=== PATIENT | male | born 1985 | race Two or more races ===

== ENCOUNTER 2024-10-06 18:49 | Emergency (ER) | payer OTHER ==
[~2024-10-06] VITALS: Ht 172.7 cm; Wt 97.0 kg
--- NOTE | 2024-10-06 20:12 | ED.PDOC ---
History of Present Illness HPI Comments 46 year old male presents to the ED with no prior Hx associated to the c/c of LLQ pain. Pt states that he was lifting a heavy door when he had an onset of pain in his LLQ area. Pt states that this event took place on Friday but has progressively gotten worse with no alleviating factors at this time. Pt notes that pain worsens when laying down and moving around. No other pain or sick complaints at this period in time. Chief Complaint: Pelvic Pain Time Seen by MD: 20:08 Reviewed Notes: Nurses Notes, Medications, Allergies Allergies: Coded Allergies: NO KNOWN ALLERGIES (Unverified , 10/06/24) Home Meds Active Scripts Cyclobenzaprine Hcl (CYCLOBENZAPRINE HCL) 7.5 Mg Tab, 7.5 MG PO Q8HP PRN, #30 TAB Prov:NABILA BLACKMAN MD 10/06/24 Gabapentin (Once-Daily) (Gabapentin) 300 Mg Tab, 300 MG PO Q6HP PRN, #30 TAB Prov:NABILA BLACKMAN MD 10/06/24 Information Source: Patient Mode of Arrival: Ambulatory Severity: Moderate Timing: Days Duration: Since onset, Days Prehospital treatment: None Past Medical History PAST MEDICAL HISTORY: Denies Surgical History: Denies all surgeries Family History Family History: Reviewed,noncontributory to illness, No family hx of Cancer, No family hx of DM, No family hx of Heart patrick, No family hx of HTN, No family hx ofKidney patrick, No family hx of Liver patrick, No family hx of Lung patrick, No family hx of Stroke Social History Smoker: Non-Smoker Alcohol: Denies ETOH Use Drugs: Denies Drug Use Lives In: Home Constitutional: denies: chills, diaphoresis, fatigue, fever, malaise, sweats, weakness, others EENTM: denies: blurred vision, double vision, ear bleeding, ear discharge, ear drainage, ear pain, ear ringing, eye pain, eye redness, hearing loss, mouth pain, mouth swelling, nasal discharge, nose bleeding, nose congestion, nose pain, photophobia, tearing, throat pain, throat swelling, voice changes, others Respiratory: denies: cough, hemoptysis, orthopnea, SOB at rest, shortness of breath, SOB with excertion, stridor, wheezing, others Cardiovascular: denies: chest pain, dizzy spells, diaphoresis, Dyspnea on exertion, edema, irregular heart beat, left arm pain, lightheadedness, palpitations, PND, syncope, others Gastrointestinal: reports: others (LLQ Pain ); denies: abdomen distended, abdominal pain, blood streaked bowels, constipated, diarrhea, dysphagia, difficulty swallowing, hematemesis, melena, nausea, poor appetite, poor fluid intake, rectal bleeding, rectal pain, vomiting Genitourinary: denies: burning, dysuria, flank pain, frequency, hematuria, in continence, penile discharge, penile sore, pain, testicle pain, testicle swelling, urgency, others Neurological: denies: dizziness, fainting, headache, left sided numbness, left sided weakness, numbness, paresthesia, pre-existing deficit, right sided numbness, right sided weakness, seizure, speech problems, tingling, tremors, weakness, others Musculoskeletal: denies: back pain, gout, joint pain, joint swelling, muscle pain, muscle stiffness, neck pain, others Integumetry: denies: bruises, change in color, change in hair/nails, dryness, laceration, lesions, lumps, rash, wounds, others Allergic/Immunocompromised: denies: Difficulty Healing, Frequent Infections, Hives, Itching, others Hematologic/Lymphatic: denies: anemia, blood clots, easy bleeding, easy bruising, swollen glands, others Endocrine: denies: excessive hunger, excessive sweating, excessive thirst, excessive urination, flushing, intolerance to cold, intolerance to heat, unexplained weight gain, unexplained weight loss, others Psychiatric: denies: anxiety, bipolar disorder, depression, hopeless, panic disorder, schizophrenia, sleepless, suicidal, others All Other Systems: Reviewed and Negative Physical Exam General Appearance: Mild Distress HEENT: Normal ENT Inspection, Pharynx Normal, TMs Normal Neck: Full Range of Motion, Non-Tender, Normal, Normal Inspection Respiratory: Chest Non-Tender, Lungs Clear, No Accessory Muscle Use, No Respiratory Distress, Normal Breath Sounds Cardiovascular: No Edema, No JVD, No Murmur, No Gallop, Normal Peripheral Pulses, Regular Rate/Rhythm Breast Exam: Deferred Gastrointestinal: LUQ, Non Tender Genitalia: Deferred Pelvic: Deferred Rectal: Deferred Extremities: No calf tenderness, Normal capillary refill, Normal inspection, Normal range of motion, Non-tender, No pedal edema Musculoskeletal : Apperance: Normal Neurologic: Alert, security public safety officer II-XII nml as Tested, No Motor Deficits, Normal Affect, Normal Mood, No Sensory Deficits Cerebellar Function: Normal Reflexes: Normal Skin: Dry, Normal Color, Warm Lymphatic: No Adenopathy Was a procedure done? Was a procedure done?: No Differential Dx Considerations may include: Differential diagnosis includes but is not limited to: ureteral colic / stone, Aortic aneurysm or dissection, pyelonephritis, acute renal failure, musculoskeletal etiology and others X-Ray, Labs, Meds, VS Vital Signs Date Time Temp Pulse Resp B/P (MAP) Pulse Ox O2 Delivery O2 Flow Rate FiO2 10/06/24 19:29 97.6 70 18 126/76 (93) 96 97.6 Lab Test 10/06/24 20:04 Range/Units White Blood Count 11.3 H 4.4-10.8 10^3/uL Red Blood Count 5.55 4.5-5.90 10^6/uL Hemoglobin 16.4 13.5-17.5 g/dL Hematocrit 47.9 41.0-53.0 % Mean Corpuscular Volume 86.4 80.0-100.0 fL Mean Corpuscular Hemoglobin 29.6 28.0-32.0 pg Mean Corpuscular Hemoglobin Concent 34.3 32.0-36.0 g/dL Red Cell Distribution Width 13.3 11.8-14.3 % Platelet Count 199 140-450 10^3/uL Mean Platelet Volume 10.3 6.9-10.8 fL Neutrophils (%) (Auto) 67.0 37.0-80.0 % Lymphocytes (%) (Auto) 24.0 10.0-50.0 % Monocytes (%) (Auto) 7.4 0.0-12.0 % Eosinophils (%) (Auto) 0.9 0.0-7.0 % Basophils (%) (Auto) 0.7 0.0-2.0 % Neutrophils # (Auto) 7.5 1.6-8.6 10 ^3/uL Lymphocytes # (Auto) 2.7 0.4-5.4 10 ^3/uL Monocytes # (Auto) 0.8 0-1.3 10 ^3/uL Eosinophils # (Auto) 0.1 0-0.8 10 ^3/uL Basophils # (Auto) 0.1 0-0.2 10 ^3/uL Nucleated Red Blood Cells 0.2 % Sodium Level 140 136-145 mmol/L Potassium Level 4.0 3.5-5.1 mmol/L Chloride Level 106 98-107 mmol/L Carbon Dioxide Level 27 20-31 mmol/L Anion Gap 7 5-15 Blood Urea Nitrogen 16 9-23 mg/dL Creatinine 1.12 0.700-1.30 mg/dL Glomerular Filtration Rate Calc 86 >90 mL/min BUN/Creatinine Ratio 14.3 10.0-20.0 Serum Glucose 91 74-106 mg/dL Calcium Level 9.5 8.7-10.4 mg/dL Total Bilirubin 0.8 0.2-1.0 mg/dL Aspartate Amino Transferase (AST) 17 13-40 U/L Alanine Aminotransferase (ALT) 27 7-40 U/L Alkaline Phosphatase 80 46-116 U/L Total Protein 7.6 5.7-8.2 g/dL Albumin 4.8 3.2-4.8 g/dL Lipase 34 12-53 U/L PATIENT: JULIOCESAR DWYER ACCT: [id number] UNIT: [id number] : 1985 LOC: ER ROOM / BED: / AGE / SEX: 39 / M ADM STATUS: REG ER SERVICE 46 ORDERING PHYSICIAN: NABILA BLACKMAN MD PROCEDURE(s): ABPL - CT AB PEL WO CON-NO ORAL OR IV REASON: flank pain ORDER NUMBER(s): [id number], ACCESSION NUMBER(s): [id number] Exam: CT CT AB PEL WO CON-NO ORAL OR IV History: flank pain Comparison Study: None Technique: Multidetector spiral CT of the abdomen was performed from lung bases to pubic symphysis. Imaging was performed without IV contrast. Axial, coronal and sagittal multiplanar reformats were obtained from the axial data set by the technologist. Radiation Dose : 1. Abdomen/Pelvis: CTDIvol 12.17 mGy, DLP 655.45 mGy*cm. Findings: Evaluation of solid organs is limited due to lack of intravenous contrast use. Lung Bases: No abnormality demonstrated. Liver: Liver is normal in size and appears unremarkable apart from a small 14 mm cyst in the right lobe. Gallbladder and Biliary Tree: No abnormality demonstrated. Spleen: No abnormality demonstrated. Pancreas: No abnormality demonstrated. Adrenal Glands: No abnormality demonstrated. Kidneys: No abnormality demonstrated. Bladder: Grossly unremarkable for degree of distention. Bowel: Stomach appears grossly unremarkable. No abnormally dilated or thick- walled loops of large or small bowel noted. Appendix is not visualized; however, no secondary findings of acute appendicitis identified. Ascites: Absent Lymphadenopathy: No evidence of lymphadenopathy. Abdominal Wall and Mesentery: Unremarkable. Vasculature: Unremarkable given lack of intravenous contrast. Pelvic Organs: Unremarkable Musculoskeletal: No bony lesions or fracture. IMPRESSION: No abnormality demonstrated. Radiation optimization: All CT scans at this facility use at least one of these dose optimization techniques: automated exposure control mA and/or kV adjustment per patient size (includes targeted exams where dose is matched to clinical indication) or iterative reconstruction. Time of 1ST Reevaluation: 20:38 Reevaluation 1ST: Unchanged Patient Education/Counseling: Diagnosis, Treatment Family Education/Counseling: No Family Present Departure 1 Departure Time of Disposition: 20:59 Impression: Primary Impression: Strain of left iliopsoas muscle Disposition: HOME / SELF CARE / HOMELESS Condition: Stable e-Prescriptions Cyclobenzaprine Hcl (CYCLOBENZAPRINE HCL) 7.5 Mg Tab 7.5 MG PO Q8HP PRN, #30 TAB Prov: NABILA BLACKMAN MD 10/06/24 Gabapentin (Once-Daily) (Gabapentin) 300 Mg Tab 300 MG PO Q6HP PRN, #30 TAB Prov: NABILA BLACKMAN MD 10/06/24 Discharged With: Self Critical Care Note Critical Care Time?: No Stability Stability form required: No I personally scribed for NABILA BLACKMAN MD ([email or web address]) on 10/06/24 at 20:12. Electronically submitted by Jacob Madrigal ([email or web address]). I personally scribed for NABILA BLACKMAN MD ([email or web address]) on 10/06/24 at 20:31. Electronically submitted by Jacob Madrigal ([email or web address]). NABILA BLACKMAN MD October 06, 2024 20:12
[2024-10-06 20:16] LABS: Basophils # (auto) 0.1 10 ^3/uL (0-0.2); Basophils % (auto) 0.7 % (0.0-2.0); Eosinophils # (auto) 0.1 10 ^3/uL (0-0.8); Eosinophils % (auto) 0.9 % (0.0-7.0); Hematocrit 47.9 % (41.0-53.0); Hemoglobin 16.4 g/dL (13.5-17.5); Lymphocytes # (auto) 2.7 10 ^3/uL (0.4-5.4); Mean Corpuscular Hemoglobin 29.6 pg (28.0-32.0); Mean Corpuscular Hgb Conc. 34.3 g/dL (32.0-36.0); Mean Corpuscular Volume 86.4 fL (80.0-100.0); Monocytes # (auto) 0.8 10 ^3/uL (0-1.3); Monocytes % (auto) 7.4 % (0.0-12.0); Neutrophils # (auto) 7.5 10 ^3/uL (1.6-8.6); Nucleated Red Blood Cells % 0.2 %; Platelet Count (auto) 199 10^3/uL (140-450); Red Blood Cells 5.55 10^6/uL (4.5-5.90); Red Cell Distribution Width 13.3 % (11.8-14.3); White Blood Cell 11.3 10^3/uL (4.4-10.8)
--- NOTE | 2024-10-06 20:25 | DVH ---
Exam: CT CT AB PEL WO CON-NO ORAL OR IV History: flank pain Comparison Study: None Technique: Multidetector spiral CT of the abdomen was performed from lung bases to pubic symphysis. Imaging was performed without IV contrast. Axial, coronal and sagittal multiplanar reformats were ob tained from the axial data set by the technologist. Radiation Dose : 1. Abdomen/Pelvis: CTDIvol 12.17 mGy, DLP 655.45 mGy*cm. Findings: Evaluation of solid organs is limited due to lack of intravenous contrast use. Lung Bases: No abnormality demonstrated. Liver: Liver is normal in size and appears unremarkable apart from a small 14 mm cyst in the right lo be. Gallbladder and Biliary Tree: No abnormality demonstrated. Spleen: No abnormality demonstrated. Pancreas: No abnormality demonstrated. Adrenal Glands: No abnormality demonstrated. Kidneys: No abnormality demonstrated. Bladder: Grossly unremarkable for degree of distention. Bowel: Stomach appears grossly unremarkable. No abnormally dilated or thick-walled loops of large or small bowel noted. Appendix is not visualized; however, no secondary findings of acute appendicitis identified. Ascites: Absent Lymphadenopathy: No evidence of lymphadenopathy. Abdominal Wall and Mesentery: Unremarkable. Vasculature: Unremarkable given lack of intravenous contrast. Pelvic Organs: Unremarkable Musculoskeletal: No bony lesions or fracture. IMPRESSION: No abnormality demonstrated. Radiation optimization: All CT scans at this facility use at least one of these dose optimization charis hniques: automated exposure control mA and/or kV adjustment per patient size (includes targeted exam s where dose is matched to clinical indication) or iterative reconstruction.
[2024-10-06 20:38] LABS: Alanine Aminotransferase 27 U/L (7-40); Albumin 4.8 g/dL (3.2-4.8); Alkaline Phosphatase 80 U/L (46-116); Anion Gap 7 (5-15); Aspartate Aminotransferase 17 U/L (13-40); BUN/Creatinine Ratio 14.3 (10.0-20.0); Bilirubin, Total 0.8 mg/dL (0.2-1.0); Blood Urea Nitrogen 16 mg/dL (9-23); Calcium 9.5 mg/dL (8.7-10.4); Carbon Dioxide 27 mmol/L (20-31); Chloride 106 mmol/L (98-107); Glucose 91 mg/dL (74-106); Lipase 34 U/L (12-53); Sodium 140 mmol/L (136-145); Total Protein 7.6 g/dL (5.7-8.2)
[2024-10-06] MEDS ORDERED: CYCL-838 PO (20:58)
[2024-10-06] MEDS ORDERED: GABA300T4 PO (20:58)
[2024-10-06 21:40] VITALS: BP 117/62; PULSE 77; RESP 20; TEMP 98; O2SAT 97
== END 2024-10-06 21:47 | disposition home or self-care (01) ==
LOC: ER 18:49
DX: S76.012A Strain of muscle, fascia and tendon of left hip, initial encounter (principal); X50.0XXA Overexertion from strenuous movement or load, initial encounter; Y93.89 Activity, other specified; Y92.89 Other specified places as the place of occurrence of the external cause; Y99.8 Other external cause status
CPT/HCPCS: 36415; 74176; 80053; 83690; 85025

== ENCOUNTER 2025-01-17 18:07 | Emergency (ER) | payer OTHER ==
[~2025-01-17] VITALS: Ht 172.7 cm; Wt 98.5 kg
[~2025-01-17 18:07] MED LIST: CYCL-838 PO; GABA300T4 PO
[2025-01-17] MEDS: KETOROLAC TROMETH 60MG/2ML VIAL IM ONE (19:06)
--- NOTE | 2025-01-17 19:08 | ED.PDOC ---
Back pain HPI HPI Comments 39-YEAR-OLD MALE PRESENTS TO THE ED CHIEF COMPLAINT LEFT MID TO LOWER BACK PAIN RADIATES TO LEFT LEG SINCE MORNING DENIES INJURY INTERMITTENT, SHARP, SPASMS DENIES URINARY, IN HIS, WEAKNESS, LOSS OF BOWEL BLADDER CONTROL, SADDLE ANESTHESIA, FEVER OR CHILLS. Chief Complaint: Back Pain Time Seen by MD: 18:10 Reviewed Notes: Nurses Notes, Medications, Allergies Allergies: Coded Allergies: NO KNOWN ALLERGIES (Unverified , 10/06/24) Home Meds Active Scripts Methylprednisolone (Medrol Dosepak) 4 Mg John, 4 MG PO UD for 6 Days, #21 TAB UAD Prov:ART, DIE POLISHER 01/17/25 Tizanidine Hydrochloride (Tizanidine Hcl) 4 Mg Tab, 4 MG PO TID PRN for 4 Days, #12 TAB Prov:DEREK CORDOVA DIE POLISHER 01/17/25 Cyclobenzaprine Hcl (CYCLOBENZAPRINE HCL) 7.5 Mg Tab, 7.5 MG PO Q8HP PRN, #30 TAB Prov:NABILA BLACKMAN MD 10/06/24 Gabapentin (Once-Daily) (Gabapentin) 300 Mg Tab, 300 MG PO Q6HP PRN, #30 TAB Prov:NABILA BLACKMAN MD 10/06/24 Information Source: Patient Mode of Arrival: Ambulatory Past Medical History PAST MEDICAL HISTORY: Denies Surgical History: Denies all surgeries Family History Family History: Reviewed,noncontributory to illness, No family hx of Cancer, No family hx of DM, No family hx of Heart patrick, No family hx of HTN, No family hx ofKidney patrick, No family hx of Liver patrick, No family hx of Lung patrick, No family hx of Stroke Social History Smoker: Non-Smoker Alcohol: Denies ETOH Use Drugs: Denies Drug Use Lives In: Home All Other Systems: Reviewed and Negative (SEE HPI) Physical Exam General Appearance: No Apparent Distress, Normal HEENT: Pharynx Normal Neck: Full Range of Motion, Non-Tender Respiratory: Lungs Clear, No Respiratory Distress, Normal Breath Sounds Cardiovascular: No Edema, No JVD, No Murmur, No Gallop, Normal Peripheral Pulses, Regular Rate/Rhythm Breast Exam: Deferred Gastrointestinal: No Organomegaly, Non Tender, No Pulsatile Mass, Normal Bowel Sounds, Soft Genitalia: Deferred Pelvic: Deferred Rectal: Deferred Extremities: No calf tenderness, Normal capillary refill, Normal range of motion, No pedal edema Musculoskeletal : Location: Left Extremity Location: Back (MODERATE TENDERNESS PALPATED OVER LEFT SIDE THORACIC AND LUMBAR MUSCULATURE WITH NOTED SPASMS. THORACIC AND LUMBAR SPINE WITHOUT CREPITUS TENDERNESS OR STEP-OFFS. STRENGTH SENSORY AND MOTION INTACT POSITIVE PEDAL PULSES NEGATIVE STRAIGHT LEG RAISE BILATERAL. NOOBVIOUS EXTERNAL VISIBLE TRAUMA) Apperance: Normal Neurologic: Alert, No Motor Deficits, Normal Affect, Normal Mood, No Sensory Deficits Cerebellar Function: Normal Reflexes: Normal Skin: Dry, Normal Color, Warm Lymphatic: No Adenopathy Was a procedure done? Was a procedure done?: No Back Pain Differential Dx Differential Diagnosis: Fracture, Musculoskeletal Pain, Pyelonephritis X-Ray, Labs, Meds, VS Vital Signs Date Time Temp Pulse Resp B/P (MAP) Pulse Ox O2 Delivery O2 Flow Rate FiO2 01/17/25 19:04 73 20 127/68 (87) 98 01/17/25 19:04 73 18 98 Room Air 01/17/25 18:09 98.1 80 18 144/93 96 98.1 Current Medications Medications (Trade) Dose Ordered Sig/Carey Route Start Time Stop Time Status Last Admin Ketorolac Tromethamine (Toradol Injection) 60 mg ONCE ONCE IM 01/17/25 19:00 01/17/25 19:01 DC 01/17/25 19:06 Dexamethasone Sodium Phosphate (Decadron Injection) 10 mg ONCE ONCE IM 01/17/25 19:00 01/17/25 19:01 DC 01/17/25 19:05 Acetaminophen/ Hydrocodone Bitart (Mccoy 10/325MG Tab) 1 tab ONCE ONCE PO 01/17/25 19:00 01/17/25 19:01 DC 01/17/25 19:11 X-Ray, Labs, Meds, VS Comment PATIENT GIVEN TORADOL 60 MG IM, DECADRON 10 MG I\, AND NORCO 10 MG P.O.. REPORTS IMPROVEMENT IN PAIN AND FUNCTION REQUESTING DISCHARGE AT THIS TIME. SCRIPT TRIAL OF MEDROL DOSEPAK AND MUSCLE RELAXER. ADVISED TAKE MEDICATION PRESCRIBED SIDE EFFECTS DISCUSSED. ADVISED TO REST FOR THE NEXT THREE DAYS ALTERNATE BETWEEN ICE AND HEAT [id number] TIGER BALM. FOLLOW UP WITH YOUR PCP IN 2-3 DAYS NECESSARY ER RETURN PRECAUTIONS GIVEN PATIENT INDICATES UNDERSTANDING AND AGREES WITH DISCHARGE PLAN OF CARE. Time of 1ST Reevaluation: 18:10 Reevaluation 1ST: Unchanged Time of 2ND Reevaluation: 19:39 Reevaluation 2ND: Improved Patient Education/Counseling: Diagnosis, Treatment, Prognosis, Need For Follow Up Family Education/Counseling: Diagnosis, Treatment, Prognosis, Need For Follow Up SEPSIS Sepsis Screen Date sepsis recognized/suspect: Jan 17, 2025 Time Sepsis recognized/suspect: 1808 Recent Procedure: No On Antibiotic Therapy: No Respiratory Rate >20: No Heart Rate >90: No Temp<36 C (96.8 F) or >38.3 C: No SBP <90 or MAP <65 mmHG: No New Acute Mental Status Change: No Is the patient on CPAP, BIPAP,: No Vital Signs Date Time Temp Pulse Resp B/P (MAP) Pulse Ox O2 Delivery O2 Flow Rate FiO2 01/17/25 19:04 73 20 127/68 (87) 98 01/17/25 19:04 73 18 98 Room Air 01/17/25 18:09 98.1 80 18 144/93 96 98.1 Medications Medications Dose Ordered Sig/Carey Route Start Time Stop Time Status Last Admin Dose Admin Acetaminophen/ Hydrocodone Bitart 1 tab ONCE ONCE PO 01/17/25 19:00 01/17/25 19:01 DC 01/17/25 19:11 Dexamethasone Sodium Phosphate 10 mg ONCE ONCE IM 01/17/25 19:00 01/17/25 19:01 DC 01/17/25 19:05 Ketorolac Tromethamine 60 mg ONCE ONCE IM 01/17/25 19:00 01/17/25 19:01 DC 01/17/25 19:06 Departure 1 Departure Time of Disposition: 19:39 Impression: Primary Impression: Lumbar sprain Qualified Codes: S33.5XXA - Sprain of ligaments of lumbar spine, initial encounter Additional Impression: Musculoskeletal pain Disposition: 01 HOME / SELF CARE / HOMELESS Condition: Stable e-Prescriptions Methylprednisolone (Medrol Dosepak) 4 Mg John 4 MG PO UD for 6 Days, #21 TAB UAD Prov: DEREK CORDOVA 01/17/25 Tizanidine Hydrochloride (Tizanidine Hcl) 4 Mg Tab 4 MG PO TID PRN for 4 Days, #12 TAB Prov: DEREK CORDOVA 01/17/25 Discharged With: Significant Other Critical Care Note Critical Care Time?: No Stability Stability form required: DEREK Appiah Jan 17, 2025 19:08
[2025-01-17] MEDS ORDERED: TIZA-142 PO (19:10)
[2025-01-17] MEDS ORDERED: METH4PAK PO (19:10)
[2025-01-17] MEDS: HYDROcodone-ACET 10/325MG TAB PO ONE (19:11)
[2025-01-17 20:08] VITALS: BP 27/71; PULSE 75; RESP 16; TEMP 98.5; O2SAT 96
== END 2025-01-17 20:10 | disposition home or self-care (01) ==
LOC: ER 18:07
DX: S33.5XXA Sprain of ligaments of lumbar spine, initial encounter (principal); M79.18 Myalgia, other site; X58.XXXA Exposure to other specified factors, initial encounter; Y93.89 Activity, other specified; Y92.89 Other specified places as the place of occurrence of the external cause; Y99.8 Other external cause status
CPT/HCPCS: 96372; 99284; J1100; J1885